=== PATIENT | male | born 1950 | race Caucasian/White ===

== ENCOUNTER 2020-07-22 14:32 | Emergency (ER) | payer MEDICARE, OTHER ==
[~2020-07-22] VITALS: Ht 185.4 cm; Wt 96.6 kg
[2020-07-22 15:53] LABS: HEMOGLOBIN 15.3 gm/dl (14.0-17.5); RED BLOOD COUNT 4.82 M/UL (4.20-5.50); WHITE BLOOD COUNT 5.5 K/UL (4.5-11.0)
[2020-07-22 16:35] LABS: BUN/CREATININE RATIO 13 (0-10)
[2020-07-22] MEDS ORDERED: ZOCOR 40 MG TAB40 MG PO (19:58)
[2020-07-22] MEDS ORDERED: LOPID TAB 600600 MG PO (19:59)
[2020-07-22] MEDS ORDERED: TENORMIN 50 MG50 MG PO (20:03)
[2020-07-22] MEDS ORDERED: LEXAPRO TAB 1010 MG PO (20:04)
[2020-07-22] MEDS ORDERED: HYDRALAZINE HC100 MG PO (20:05)
[2020-07-22] MEDS ORDERED: OMEPRAZOLE20 MG PO (20:08)
[2020-07-22] MEDS ORDERED: KEPPRA250 MG PO ×2 (20:08→20:12)
[2020-07-23 05:32] LABS: HEMOGLOBIN 14.7 gm/dl (14.0-17.5); RED BLOOD COUNT 4.66 M/UL (4.20-5.50); WHITE BLOOD COUNT 4.8 K/UL (4.5-11.0)
[2020-07-23] MEDS ORDERED: AZITHROMYCIN250 MG PO (10:33)
[2020-07-23] MEDS ORDERED: OMNICEF 300 MG300 MG PO (10:33)
[2020-07-23] MEDS ORDERED: HYDRALAZINE HCL50 MG PO ×2 (10:33→11:03)
== END 2020-07-23 13:45 | disposition home or self-care (01) ==
LOC: ER1 14:32 → CDU 19:02
PROVIDERS: Emergency Medicine; Internal Medicine
DX: U07.1 COVID-19 (principal); J12.82 Pneumonia due to coronavirus disease 2019; I95.1 Orthostatic hypotension; I12.9 Hypertensive chronic kidney disease with stage 1 through stage 4 chronic kidney disease, or unspecified chronic kidney disease; N18.9 Chronic kidney disease, unspecified; I25.10 Atherosclerotic heart disease of native coronary artery without angina pectoris; Z88.5 Allergy status to narcotic agent
CPT/HCPCS: 70450; 71045; 80053; 81001; 82550; 82553; 83874; 84484; 85025; 85027; 87040; 93005; 96365; 96372; 96375; 96376; 99285; C9113; J0696; J1953; U0002